=== PATIENT | male | born 1940 | race Caucasian/White ===

== ENCOUNTER 2018-12-10 06:45 | Inpatient (IN) | payer MEDICARE, BC ==
[2018-12-05 16:32] VITALS: BMI 22.4
[2018-12-10] VITALS (20 sets, daily range): BP systolic 115–159; BP diastolic 59–76; PULSE 59–85; RESP 14–33; Ht 180.3 cm; Wt 72.5 kg
[~2018-12-10] VITALS: Ht 180.3 cm; Wt 72.5 kg
[2018-12-10] MEDS ORDERED: GABAPENTIN 300 MG CAP PO SCH ×2 (07:00→21:00)
[2018-12-10] MEDS ORDERED: DEXAMETHASONE 1 MG TAB PO SCH (07:00)
[2018-12-10] MEDS ORDERED: TRANEXAMIC ACID 1GM/100ML(PMX) 100 ML IVPB SCH (07:00)
[2018-12-10] MEDS ORDERED: CEFAZOLIN 2 GM/50 ML (PMX) 50 ML IVPB SCH (07:00)
[2018-12-10] MEDS ORDERED: BUPIVACAINE 0.5% (SDV) 30 ML, morphine SULFATE (PF) 8 MG, EPINEPHrine 0.3 MG, KETOROLAC... IRR SCH ×7 (07:00)
[2018-12-10] MEDS ORDERED: ONDANSETRON 4 MG INJ ONE (07:58)
[2018-12-10] MEDS ORDERED: GLYCOPYRROLATE 0.4 MG INJ ONE ×2 (07:58→11:11)
[2018-12-10] MEDS ORDERED: NEOSTIGMINE 3 MG/3 ML SYRINGE ONE ×2 (07:58→11:11)
[2018-12-10] MEDS ORDERED: ROPIVACAINE 0.5 % 30 ML VIAL ONE (07:58)
[2018-12-10] MEDS ORDERED: MIDAZOLAM 1 MG/ML 2 ML INJ ONE (07:58)
[2018-12-10] MEDS ORDERED: ROCURONIUM 50 MG INJ ONE (07:58)
[2018-12-10] MEDS ORDERED: FENTAnyl 50 MCG/ML VIAL ONE (07:58)
[2018-12-10] MEDS ORDERED: DEXAMETHASONE 4 MG/ML 5 ML INJ ONE (07:58)
[2018-12-10] MEDS ORDERED: PROPOFOL 20 ML ONE (07:58)
[2018-12-10] MEDS ORDERED: CEFAZOLIN 1 GM INJ ONE (07:58)
[2018-12-10] MEDS ORDERED: LABETALOL HCL 20MG INJ IV PRN (09:30)
[2018-12-10] MEDS ORDERED: OXYCODONE/ACETAMINOPHEN (5/325) TAB PO PRN ×2 (09:30)
[2018-12-10] MEDS ORDERED: DIPHENHYDRAMINE 50 MG INJ IV PRN ×2 (09:30→11:30)
[2018-12-10] MEDS ORDERED: MEPERIDINE 25 MG INJ IV PRN (09:30)
[2018-12-10] MEDS ORDERED: hydrALAzine 20 MG INJ IV PRN (09:30)
[2018-12-10] MEDS ORDERED: HYDROmorphONE 1 MG/5 ML IV SYRINGE IV PRN ×3 (09:30)
[2018-12-10] MEDS ORDERED: TRIMETHOBENZAMIDE 100 MG/ML VIAL IM PRN (09:30)
[2018-12-10] MEDS ORDERED: ONDANSETRON 4 MG INJ IV PRN ×2 (09:30→11:30)
[2018-12-10] MEDS ORDERED: MIDAZOLAM 1 MG/ML 2 ML INJ IV PRN (09:30)
[2018-12-10] MEDS ORDERED: FENTAnyl 50 MCG/ML VIAL IV PRN ×3 (09:30)
[2018-12-10] MEDS ORDERED: EPHEDrine 25 MG/5 ML SYG IV PRN (09:30)
[2018-12-10] MEDS ORDERED: IPRATROPIUM (NEB) 0.5 MG/2.5 ML AMP HHN PRN (09:30)
[2018-12-10] MEDS ORDERED: ALBUTEROL 0.083% (NEB) 2.5 MG/3 ML AMP HHN PRN (09:30)
[2018-12-10] MEDS ORDERED: TRANEXAMIC ACID 1GM/100ML(PMX) 100 ML ONE (09:52)
[2018-12-10] MEDS ORDERED: POLYMYXIN/BACITRACIN 1L IRRIG ONE (10:20)
[2018-12-10] MEDS ORDERED: CA CHLORIDE (GM) 10% 10 ML INJ ONE (10:20)
[2018-12-10] MEDS ORDERED: THROMBIN 5000 UNIT (RECOTHROM) VIAL ONE (10:20)
[2018-12-10] MEDS ORDERED: TRANEXAMIC ACID 1GM/100ML(PMX) 100 ML IVPB ONE (11:30)
[2018-12-10] MEDS ORDERED: oxyCODONE 5 MG TAB PO PRN ×3 (11:30)
[2018-12-10] MEDS ORDERED: ZOLPIDEM 5 MG TAB PO PRN (11:30)
[2018-12-10] MEDS ORDERED: HYDROmorphONE 1 MG/ML SYG IV PRN (11:30)
[2018-12-10] MEDS ORDERED: LOPERAMIDE 2 MG CAP PO PRN (11:30)
[2018-12-10] MEDS ORDERED: KETOROLAC 15 MG INJ IV PRN (11:30)
[2018-12-10] MEDS ORDERED: MAGNESIUM HYDROXIDE 30ML CUP PO PRN (11:30)
[2018-12-10] MEDS ORDERED: NACL 0.9% 3 ML SYG IV SCH (11:30)
[2018-12-10] MEDS: DEXAMETHASONE 2 MG TAB PO SCH ×3 (12:35→23:12)
[2018-12-10] MEDS: CEFAZOLIN 1 GM/50 ML (PMX) 50 ML IVPB SCH ×2 (12:35→20:14)
[2018-12-10] MEDS: ACETAMINOPHEN 500 MG TAB PO SCH ×3 (12:35→23:12)
[2018-12-10] MEDS: SENNA/DOCUSATE NA (8.6MG/50MG) TAB PO SCH (20:15)
[2018-12-11] MEDS: CEFAZOLIN 1 GM/50 ML (PMX) 50 ML IVPB SCH (02:31)
[2018-12-11 04:35] VITALS: BP 138/70; PULSE 60; RESP 18
[2018-12-11] MEDS: DEXAMETHASONE 2 MG TAB PO SCH (05:00)
[2018-12-11] MEDS: ACETAMINOPHEN 500 MG TAB PO SCH (05:01)
[2018-12-11 07:52] VITALS: BP 128/63; PULSE 61; RESP 16
[2018-12-11] MEDS: SENNA/DOCUSATE NA (8.6MG/50MG) TAB PO SCH (09:16)
== END 2018-12-11 11:09 | disposition home or self-care (01) | DRG 483 ==
LOC: REC 06:45 → EDSTATUS 14:30 → MS1 15:13
PROVIDERS: ADMIT Orthopaedic Surgery; ATTEND Orthopaedic Surgery
PROC: 0PB90ZZ Excision of Right Clavicle, Open Approach (ICD-10-PCS; 2018-12-10)
PROC: 0RRJ00Z Replacement of Right Shoulder Joint with Reverse Ball and Socket Synthetic Substitute, Open Approach (ICD-10-PCS; principal; 2018-12-10 09:30)
DX: M19.211 Secondary osteoarthritis, right shoulder (principal); M75.101 Unspecified rotator cuff tear or rupture of right shoulder, not specified as traumatic; Z72.0 Tobacco use; N40.0 Benign prostatic hyperplasia without lower urinary tract symptoms
CPT/HCPCS: 86999; 88304; 88311; 97161; C1776; J0171; J0690; J0735; J1100; J1885; J2250; J2274; J2405; J2710; J2795; J3010; J3370